=== PATIENT | female | born 2005 | race Caucasian/White ===

== ENCOUNTER → 2025-06-27 12:45 | Outpatient (REF) | payer BC, SELFPAY | LOC: PAVMRI 12:45 | PROVIDERS: ATTENDING PHYSICIAN Psychiatry & Neurology Neurology; FAMILY PHYSICIAN Internal Medicine | DX: R29.90 Unspecified symptoms and signs involving the nervous system (principal) | CPT/HCPCS: 70544; 70547; 70553; A9575 ==

== ENCOUNTER 2025-07-19 11:01 | Emergency (ER) | payer BC, SELFPAY ==
[2025-07-19 11:09] VITALS: BP 130/74
[2025-07-19 11:30] VITALS: BP 109/74
[2025-07-19 11:37] VITALS: BMI 23.3
[2025-07-19 12:00] VITALS: BP 96/73
[2025-07-19 13:00] VITALS: BP 98/67
[2025-07-19 13:35] LABS: Hematocrit 37.6 % (37.0-47.0); Hemoglobin 12.9 g/dL (12.0-16.0); Mean Corp Hgb Conc. 34.3 g/dL (33.0-37.0); Mean Corpuscular Volume 91.9 fL (81.0-99.0); Nucleated Red Blood Cells % 0 %; Platelet Count 179 10^3/uL (130-400); Red Cell Dist. Width 12.6 % (11.5-14.5)
[2025-07-19 14:02] LABS: Troponin I < 0.012 ng/ml
[2025-07-19 14:51] LABS: HCG, Serum Qualitative Screen Negative
[2025-07-19 14:57] LABS: ALT (SGPT) 25 U/L (0-35); AST (SGOT) 23 U/L (14-36); Albumin 4.3 g/dl (3.5-5.0); Alkaline Phosphatase 39 U/L (38-126); Blood Urea Nitrogen 10 mg/dl (7-17); Calcium 9.2 mg/dl (8.4-10.2); Carbon Dioxide 26 mmol/L (22-30); Chloride 108 mmol/L (98-107); Estimated Creatinine Clearance 123 ml/min; Glucose 92 mg/dl (70-99); Potassium 4.4 mmol/L (3.5-5.1); Sodium 138 mmol/L (135-145); Total Protein 7.0 g/dl (6.3-8.2); eGFR > 60.00
--- NOTE | 2025-07-19 15:21 | ED.GENMED ---
History of Present Illness
General
Chief Complaint: Numbness
Source: patient and family
Exam Limitations: none
Time Seen by Provider: 07/19/25 13:11
Nursing documentation reviewed up to this point in time: agreed with
History of Present Illness
History of Present Illness:
Note:
CHIEF COMPLAINT(S)
Numbness in the arm, vertigo, and nausea for the past 12 hours.
HISTORY OF PRESENT ILLNESS
The patient is a 20-year-old female who presents with numbness in her arm, along with vertigo and nausea, lasting for approximately 12 hours. She reports repeatedly waking up during the night, concerned due to her arm feeling stiff and temporarily
immobilized. She denies experiencing headaches, and states, 'my head is fine.' The symptoms have not resolved with any specific interventions or rest.
ADDITIONAL HISTORY OBTAINED FROM SOURCES OTHER THAN THE PATIENT
The patients mother is present and corroborates the timeline of symptoms, noting the absence of headache as mentioned by the patient.
PLAN
Plan to perform an X-ray of the shoulder and check laboratory tests. Electrocardiography (EKG) will also be evaluated for further assessment of the presented symptoms.
DIFFERENTIAL DIAGNOSIS
The Differential Diagnosis includes, in no particular order and is not limited to:
1. Brachial plexopathy
2. Transient ischemic attack
3. Cervical radiculopathy
4. Multiple sclerosis
5. Vertebrobasilar insufficiency
6. Peripheral neuropathy
7. Thoracic outlet syndrome
8. Anxiety disorder with somatic symptoms
9. Orthostatic hypotension
10. Inner ear infection or disorder
CARE-UPDATE
07/19/25 - 15:22
Follow-up planned with primary care and neurology for atypical migraine with no neurological deficits currently observed. Discharge approved, and patient advised on prescribed regimen for symptomatic relief.
CARE-UPDATE
07/19/25 - 15:23
The right shoulder X-ray is normal, indicating no fractures, dislocations, or other abnormalities. Continue current management plan as no acute changes are necessary at this time.
EKG
My independent EKG interpretation is:
- Rhythm: Normal sinus rhythm
- Heart Rate: 69 beats per minute
- PA Interval: Normal
- QRS Duration: Normal
- ST Segment: Normal
- QT Interval: Normal
- [place]: Not specified
- Abnormalities: None observed
Disposition:
SUMMARY OF ENCOUNTER
The patient, a 20-year-old female, was seen in the emergency department for numbness in the arm, vertigo, and nausea persisting for 12 hours. Her symptoms were reviewed, and differential diagnoses were considered. She was found to be stable without
signs of acute coronary syndrome (ACS), pulmonary embolism (PE), or cerebrovascular accident (CVA). Diagnostic tests including an X-ray and EKG were performed, ruling out significant cardiac or structural issues. The arm numbness did not resolve
with initial interventions, and the patient was managed to ensure no immediate neurological deficits.
DISPOSITION
Discharge.
ASSESSMENT
Patient presenting with arm numbness and vertigo, possibly secondary to brachial plexopathy, cervical radiculopathy, or other neurological issues. No acute cardiovascular or life-threatening events identified.
EMERGENCY TREATMENTS ADMINISTERED
Gabapentin was provided for symptom management.
PLAN
The patient is advised to follow up with primary care and neurology for further evaluation of symptoms potentially linked to atypical migraine or neurological concerns. Further testing, if necessary, will occur upon follow-up consultations.
INDEPENDENT REVIEW OF LABS AND INTERPRETATION OF TESTS
My independent interpretation of the shoulder X-ray is normal, showing no fractures, dislocations, or gross abnormalities. My independent EKG interpretation: normal sinus rhythm, heart rate of 69 beats per minute, with no observed abnormalities.
PATIENT EDUCATION AND COUNSELING
Provided explanation regarding the tentative nature of the diagnosis, with emphasis on monitoring symptoms. Advised regarding return precautions should symptoms worsen or new symptoms arise.
FOLLOW-UP INSTRUCTIONS
Follow-up with primary care and neurology as recommended.
MEDICATION RECONCILIATION
Gabapentin provided for symptomatic relief.
MEDICAL DECISION MAKING
-Complexity of Data Reviewed: Differential Diagnosis includes:
1. Brachial plexopathy
2. Transient ischemic attack
3. Cervical radiculopathy
4. Multiple sclerosis
5. Vertebrobasilar insufficiency
6. Peripheral neuropathy
7. Thoracic outlet syndrome
8. Anxiety disorder with somatic symptoms
9. Orthostatic hypotension
10. Inner ear infection or disorder.
-Data:
Category 1
Clinical information was corroborated by the patients mother regarding the symptom timeline.
Category 2
My independent interpretation of EKG: Normal findings. Right shoulder X-ray: Normal findings.
-Risk:
Consideration of Admission/Observation: Escalation of care including admission/observation was considered given the complexity and risk of the patients presenting complaint, exam findings, and/or their underlying comorbidities. However, ultimately I
feel the patient is safe for outpatient management with close follow-up. Reasoning: Work-up reassuring, does not reveal any acute life/organ threatening processes, patients symptoms well controlled upon reevaluation, reexamination is reassuring,
vitals are stable, patient agreeable with discharge, reliable for follow-up.
DIAGNOSIS
1. 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
2. Vertigo of central origin - ICD-10 Code: H81.4.
Past History
Social History
Tobacco: Non-smoker
Alcohol: None
Drug: None
Phy Exam
Physical Exam
Physical Exam:
.
Course
Orders/Labs/Results
Orders:
Orders
07/19/25 11:12
Electrocardiogram (*1) Urgent
Reason for Study: Vertigo / Dizzy
EKG- Treatment ONCE
07/19/25 13:11
Test Result ONCE
07/19/25 13:20
Complete Blood Count/With Diff Urgent
Lyme Progressive Urgent
Troponin I Urgent
07/19/25 13:25
Shoulder, Right 2 Views [CR Shoulder - Right Min 2 View] Urgent
Comment:
Reason For Exam: right shoulder pain, arm numbness
07/19/25 14:33
Comprehensive Metabolic Panel Urgent
HCG, Serum Qualitative Screen Urgent
Abnormal Lab Results
07/19/25 07/19/25
13:20 14:33
RBC 4.09 L 10^6/uL
(4.20-5.40)
MCH 31.5 H pg
(27.0-31.0)
Chloride 108 H mmol/L
(98-107)
07/19/25 13:20
07/19/25 14:33
Vital Signs
Initial and Last Documented VS:
Initial Vital Signs
Temp Pulse Resp BP Pulse Ox
98.6 F 71 18 130/74 100
07/19/25 11:09 07/19/25 11:09 07/19/25 11:09 07/19/25 11:09 07/19/25 11:09
Last Documented Vital Signs
Temp Pulse Resp BP Pulse Ox
98.6 F 61 11 98/67 100
07/19/25 11:09 07/19/25 13:45 07/19/25 13:45 07/19/25 13:00 07/19/25 15:24
*Pulse Oximetry
SaO2: 100
Oxygen Mode of Delivery: Room air
Patient hypoxic: no
*Critical Care Note
Total Time (30-74mins, 75-104mins- exclusive of procedures): Not Applicable
ED Attending Note
-
Portions of this chart may have been created with voice recognition software.� Occasional wrong word or��sound alike� substitutions may have occurred due to the inherent limitations of voice recognition software.
Discharge Plan
Departure
Patient Disposition: Home (Routine Discharge)
Date of Disposition: 07/19/25
Time of Disposition: 15:18
Patient with high blood pressure during this ER visit?: No
Condition: Good
Discharge Problem:
Numbness and tingling of right arm
Instructions: Paresthesia (DC)
Prescriptions:
New
gabapentin [Neurontin] 100 mg capsule
100 mg PO TID PRN (Reason: pain and numbness) Qty: 14 0RF
No Action
spironolactone 25 MG tablet
50 mg PO DAILY
norethindrone-e.estradiol-iron [Lo Loestrin Fe] 1 EACH tablet
1 tab PO DAILYPRN PRN (Reason: control)
Referrals:
Irina Will MD [Non-Admitting Privileges, Psychiatry] - Call in 1-3 days for appt
Minna Henderson MD [Family Provider, Internal Medicine]
Interventions
Interventions:
*Risk Screen - Suicide Last Done: 07/19/25 11:09
*General Assessment Last Done: 07/19/25 11:09
*Neglect/Abuse Screening Last Done: 07/19/25 11:09
*ED- Fall Risk Assessment Last Done: 07/19/25 11:37
*ED COVID-19 Vaccine History Last Done: 07/19/25 11:37
*Nursing Disposition Last Done: 07/19/25 15:30
ED- Neurological Assessment Last Done: 07/19/25 11:37
Discharge Date and Time
Discharge Date/Time: 07/19/25 15:30
Print Language: MALAY
[2025-07-22 13:53] LABS: Lyme Antibody Screen, EIA Equivocal (Negative)
== END 2025-07-19 15:30 | disposition home or self-care (01) ==
LOC: EMR 11:01
PROVIDERS: EMERGENCY PHYSICIAN Emergency Medicine; FAMILY PHYSICIAN Internal Medicine
DX: R20.0 Anesthesia of skin (principal); R42 Dizziness and giddiness
CPT/HCPCS: 99283; 73030; 80053; 84484; 84703; 85025; 86617; 86618; 93005